=== PATIENT | male | born 1970 | race Caucasian/White ===

== ENCOUNTER 2020-03-11 10:39 | Outpatient (REF) | payer OTHER, SELFPAY ==
[2020-03-11 13:37] LABS: Alanine Aminotransferase 31 U/L (0-40); Albumin Level 4.5 g/dL (3.5-5.0); Alkaline Phosphatase 84 U/L (39-117); Anion Gap 15 (12-20); Aspartate Amino Transferase 37 U/L (5-37); Bilirubin Total 0.7 mg/dL (0.0-1.0); Blood Urea Nitrogen 15 mg/dL (9-16); Calcium 9.7 mg/dL (8.4-10.2); Carbon Dioxide 25 mmol/L (22-29); Chloride 102 mmol/L (96-108); Cholesterol 206 mg/dL; Estimated Glomerular Filt Rate > 60; Glucose Fasting 89 mg/dL (60-99); HDL Cholesterol 92 mg/dL; LDL Cholesterol Calculated 90 mg/dl; Potassium 4.2 mmol/l (3.3-5.1); Sodium 138 mmol/L (135-145); Total Protein 7.8 g/dL (6.5-8.0); Triglycerides 121 mg/dL
== END 2020-03-11 10:40 | disposition home or self-care (01) ==
LOC: HO.LAB 10:39
PROVIDERS: PCP Internal Medicine; Visit Provider Internal Medicine
DX: R05 Cough (principal); I10 Essential (primary) hypertension; F17.210 Nicotine dependence, cigarettes, uncomplicated; E78.00 Pure hypercholesterolemia, unspecified; Z79.899 Other long term (current) drug therapy
CPT/HCPCS: 80053; 80061; 99202; 99204; 99212

== ENCOUNTER 2020-03-19 10:41 | Outpatient (REF) | payer OTHER, SELFPAY ==
--- NOTE | 2020-03-19 10:45 | XR_ITS ---
EXAMINATION: XR CHEST CLINICAL INFORMATION: Cough COMPARISON: Previous chest x-rays most recent May 2012 TECHNIQUE: 2 views of the chest were obtained. FINDINGS: The cardiac and mediastinal contours are stable. The lungs are clear there is no pleural effusion or pneumothorax. There are degenerative changes of the spine. There is a surgical tack or anchor that projects over the right humeral head. XR/XR chest 2V IMPRESSION: No evidence for acute disease in the chest.
== END 2020-03-19 10:42 | disposition home or self-care (01) ==
LOC: HO.XRAY 10:41
PROVIDERS: PCP Internal Medicine; Visit Provider Internal Medicine
DX: R05 Cough (principal)
CPT/HCPCS: 71046

== ENCOUNTER 2020-03-26 07:10 | Emergency (ER) | payer OTHER, SELFPAY ==
[2020-03-26 07:36] VITALS: BP 141/95; PULSE 76; RESP 16; TEMP 36.7; O2SAT 98; BMI 25.7
--- NOTE | 2020-03-26 07:54 | XR_ITS ---
EXAMINATION: XR RIBS, LEFT CLINICAL INFORMATION: Left-sided pain COMPARISON: Previous chest x-ray most recent 03/19/2020 TECHNIQUE: 3 views of the left ribs and one view of the chest were obtained. FINDINGS: The cardiac and mediastinal contours are stable. There is subsegmental atelectasis at the lung bases. The lungs are otherwise clear. There is no pleural effusion or pneumothorax. There is a surgical anchor over the right humeral head. There are degenerative changes of the spine. Left RIBS: No rib fracture is seen. XR/XR ribs LT min 3V w CXR1V IMPRESSION: Bibasilar subsegmental atelectasis. No rib fracture seen.
--- NOTE | 2020-03-26 07:54 | ED.EXTPRO ---
HPI - Extremity Problem General Chief complaint: Extremity Injury, Upper Stated complaint: shoulder pain Time Seen by Provider: 03/26/20 07:54 Source: patient Mode of arrival: ambulatory Limitations: no limitations History of Present Illness HPI Narrative: L upper back/scapula pain MD Complaint: extremity pain Onset (ago): day(s) (3) Pain Consistency: constant Location: left Quality: aching Radiation: proximal Relieving factors: nothing Exacerbating factors: range of motion Associated symptoms: denies other symptoms Related Data Home Medications Medication Instructions Recorded Confirmed amlodipine 10 mg tablet 10 mg PO DAILY 02/16/20 02/16/20 atorvastatin 20 mg tablet 20 mg PO DAILY 02/16/20 02/16/20 metoprolol succinate 25 mg 25 mg PO DAILY 02/16/20 02/16/20 tablet,extended release 24 hr Previous Rx's Medication Instructions Recorded albuterol sulfate 90 mcg/actuation 2 puff INHALATION Q4-6H PRN 30 03/12/20 aerosol inhaler Days #8.5 g nicotine 14 mg/24 hr daily 1 patch TRANSDERMAL Q24H 28 Days 03/12/20 transdermal patch #28 ea cyclobenzaprine 10 mg PO TID PRN #14 tab 03/26/20 ibuprofen 600 mg PO Q6H PRN #30 tab 03/26/20 lidocaine 1 patch TOPICAL DAILY PRN #10 ea 03/26/20 Allergies Allergy/AdvReac Type Severity Reaction Status Date / Time lisinopril [LISINOPRIL] Allergy Unknown COUGH Verified 03/11/20 11:16 Review of Systems Review of Systems: Constitutional : No Fever, No Chills ENT/Mouth : No Ear Pain, No Hoarseness, No sore throat Eyes: No Eye Pain, No Swelling, No Redness, No Foreign Body Cardiovascular : No Chest Pain, No SOB Respiratory : No Cough, No Dyspnea Gastrointestinal : No Nausea, No Vomiting, No Diarrhea, No abdominal Pain Genitourinary : No Dysuria, No Hematuria Musculoskeletal : positive joint pain, No Myalgias, No Joint Swelling Skin : No Skin lacerations, No rash Neuro : No Weakness, No Numbness, No Loss of Consciousness, No Dizziness, No Headache PMFSH Past Medical History Medical History Cough HTN (hypertension) Smoker Social History Social History Smoking Status: Current every day smoker Packs Per Day: 1 Cigarettes Per Day: 20.0 Years Smoked: 32 years Advance Directives: No Advance Directives Information Provided: Yes Physical Exam Vital Signs: Vital Signs: Last Vital Signs Temp 98.0 F 03/26/20 07:36 Pulse 76 03/26/20 07:36 Resp 16 03/26/20 07:36 BP 141/95 H 03/26/20 07:36 Pulse Ox 98 03/26/20 07:36 Body Mass Index 25.7 Appearance: Alert. Oriented X3. No acute distress. Eyes: Pupils equal, round and reactive to light. ENT: Pharynx normal. Neck: Normal inspection. Neck supple. CVS: Normal heart rate and rhythm. Pulses normal. Respiratory: No respiratory distress. Breath sounds normal. Abdomen: Soft and nontender. Skin: Skin warm and dry. Normal skin color. Normal skin turgor. Extremities: No lower extremity edema. L upper paraspinal pain along rhomboids as well as pain on left trapezius, no crepitus felt with ROM of shoulder, no midline vert ttp, distal NV intact Neuro: Oriented X 3. No motor deficit. No sensory deficit. Course Course Course Narrative: negative xray stable for DC MDM - Extremity (Nontraumatic) MDM Narrative Medical decision making narrative: 49 yo male with L scapula upper back pain - hx of smoking no red flags such as fevers, weight loss, pain is very much reproduceable, he does have some L sided neck pain as well with spurling maneuver at this time will obtain rib xray to obtain views of L chest seems MSK in nature, lidocaine patch, flexeril, follow up with PCP Discharge Plan Discharge Clinical Impression: Muscle strain Patient Disposition: Home, Self-Care Instructions: Muscle Strain (ED) Additional Instructions: return to ED for any worsening symptoms or concerns Prescriptions: New cyclobenzaprine 10 mg tablet 10 mg PO TID PRN (Reason: muscle spasm) Qty: 14 RF: 0 lidocaine 4 % adhesive patch,medicated 1 patch topical DAILY PRN (Reason: pain) Qty: 10 RF: 0 ibuprofen 600 mg tablet 600 mg PO Q6H PRN (Reason: pain) Qty: 30 RF: 0 No Action atorvastatin 20 mg tablet 20 mg PO DAILY RF: 0 metoprolol succinate 25 mg tablet extended release 24 hr 25 mg PO DAILY RF: 0 amlodipine 10 mg tablet 10 mg PO DAILY RF: 0 albuterol sulfate [ProAir HFA] 90 mcg/actuation HFA aerosol inhaler 2 puff inhalation Q4-6H PRN (Reason: shortness of breath or wheezing) 30 Days Qty: 8.5 RF: 1 nicotine 14 mg/24 hr patch 24 hour 1 patch transdermal Q24H 28 Days Qty: 28 RF: 2 Referrals: Izabela Ellis MD [Primary Care Provider] - 2 days (if not better) Stand Alone Forms: Work/School Release
[2020-03-26] MEDS: Lidocaine 4 % Patch ADH..PATCH 1 PATCH TRANSDERMA (08:13)
== END 2020-03-26 09:05 | disposition home or self-care (01) ==
PROVIDERS: Emergency Provider Emergency Medicine; PCP Internal Medicine
DX: S46.912A Strain of unspecified muscle, fascia and tendon at shoulder and upper arm level, left arm, initial encounter (principal); S29.012A Strain of muscle and tendon of back wall of thorax, initial encounter; M25.512 Pain in left shoulder; I10 Essential (primary) hypertension; X58.XXXA Exposure to other specified factors, initial encounter; Y93.9 Activity, unspecified; Y92.9 Unspecified place or not applicable; Y99.9 Unspecified external cause status; Z79.899 Other long term (current) drug therapy; F17.200 Nicotine dependence, unspecified, uncomplicated; Z71.6 Tobacco abuse counseling
CPT/HCPCS: 71101; 99283

== ENCOUNTER 2020-04-08 11:30 | Day surgery (SDC) | payer OTHER, SELFPAY ==
[2020-03-31 10:15] VITALS: BMI 26.8
--- NOTE | 2020-04-07 13:26 | HO.ANESPROP2 ---
Documented by User: Corinne Perez 04/07/20 13:30 HPI - Anesthesia Eval Consult details Narrative: 49yo M for Colonoscopy PMFSH Past Medical History Medical History Cough Cough Elevated cholesterol HTN (hypertension) Hx of gout Smoker Smoker Surgical History Surgical History Hx of carpal tunnel repair Hx of elbow surgery Hx of rotator cuff surgery Hx of tonsillectomy Hx of vasectomy Social History Social History Smoking Status: Current every day smoker Packs Per Day: 1 Cigarettes Per Day: 20.0 Years Smoked: 32 Advance Directives Information Provided: Yes Meds Allergies Allergy/AdvReac Type Severity Reaction Status Date / Time lisinopril [LISINOPRIL] Allergy Intermediate COUGH Verified 04/08/20 09:41 Home Medications Medication Instructions Recorded Confirmed Type atorvastatin 20 mg tablet 20 mg PO DAILY 02/16/20 03/31/20 History amlodipine 10 mg tablet 10 mg PO DAILY 04/02/20 History Exam Exam Date and Time: April 07, 2020 1326 Height,Weight and Vital Signs: Height 5 ft 10 in Weight 84.822 kg Pertinent Lab Results Pertinent Lab Results: Laboratory Tests 03/14/19 03/11/20 07:25 10:59 WBC 9.9 Hgb 16.1 Hct 48.6 Plt Count 344 D Sodium 138 Potassium 4.2 Chloride 102 Carbon Dioxide 25 BUN 15 Creatinine 0.83 Narrative Narrative: CXR 03/19/20: No evidence of acute disease Assessment and Plan Assessment Anesthesia Assessment: Chart Reviewed Documented by User: Hermelinda Sahni 04/08/20 12:37 [facility] Past Medical History Medical History Cough Cough Elevated cholesterol HTN (hypertension) Hx of gout Smoker Smoker Family History Family history of problems with anesthesia: No Surgical History Surgical History Hx of carpal tunnel repair Hx of elbow surgery Hx of rotator cuff surgery Hx of tonsillectomy Hx of vasectomy History of Problems with Anesthesia: No Social History Social History Smoking Status: Current every day smoker Packs Per Day: 1 Cigarettes Per Day: 20.0 Years Smoked: 32 Advance Directives Information Provided: Yes Meds Allergies Allergy/AdvReac Type Severity Reaction Status Date / Time lisinopril [LISINOPRIL] Allergy Intermediate COUGH Verified 04/08/20 09:41 Home Medications Medication Instructions Recorded Confirmed Type atorvastatin 20 mg tablet 20 mg PO DAILY 02/16/20 03/31/20 History amlodipine 10 mg tablet 10 mg PO DAILY 04/02/20 History Exam Height,Weight and Vital Signs: Vital Signs Temp Pulse Resp BP Pulse Ox 04/08/20 11:37 98.1 F 65 16 165/93 H 99 Airway Mallampati Class: III TM Dist: >3cm Neck ROM: Full Denture: Upper Partial: Lower Heart: RRR Lungs: CTAB Assessment and Plan Assessment Anesthesia Assessment: Anesthesia Plan Discussed and Chart Reviewed Final Anesthetic Review NPO: No (Coffee with cream about 6 hours ago) ASA Class: II Final Preanesthetic Review: No Changes in Pt Med Stat, Meds/Allgs Chart Reviewed, Consent Obtained/Reviewed and Anes Risks/Benef Reviewed Patient Risk: Low Procedure Risk: Low Anesthetic Plan Anesthetic Plan: MAC: Disposition: Standard PACU
[2020-04-08 11:37] VITALS: BP 165/93; PULSE 65; RESP 16; TEMP 36.7; O2SAT 99
[2020-04-08] MEDS: Lactated Ringers 1,000 ML 100 ML IVCONT (11:44)
--- NOTE | 2020-04-08 12:49 | MHC.SHP ---
Pre-Procedural Eval Section B Chief Complaint: SCREENING Details of Present Illness: Colon cancer screening Recent eval for chronic cough--Nikky--? asthma variant, cigarette smoker. Relevant Family History (Specify if Yes): No Relevant Social History: Tobacco Use (1ppd) Present Medications: see Short Stay Collaborative assessment Medical History: Significant History (Hypertension, Cigarette smoker) History of Previous Operations: No relevant previous surgery Allergies: Allergies Allergy/AdvReac Type Severity Reaction Status Date / Time lisinopril [LISINOPRIL] Allergy Intermediate COUGH Verified 04/08/20 09:41 Review of Systems Sugical H&P ROS: Negative: Constitution and Yes, Specify: Cardiovascular (Hypertension), Respiratory (Cough), Neurological and Gastrointestinal (denies gerd) Exam Surgical H&P Exam: Normal: HEENT, Normal: Heart, Normal: Lungs, Normal: Extremities and Normal: Abdomen Plan Diagnosis/Plan: Unchanged Patient has been examined and remains a candidate for the planned procedure--yes
[2020-04-08 13:37] VITALS: BP 106/71; PULSE 86; RESP 20; TEMP 36.3; O2SAT 94
--- NOTE | 2020-04-08 13:40 | PM.PROC ---
Brief Operative Note Date of procedure: 04/08/20 Pre-op diagnosis: Colon cancer screening--#1, NHR Post-op diagnosis: other (cecal polyps) Procedure: Colonoscopy with excisional polypectomy Anesthesia: MAC (Phong Roberts, ELA) Surgeon: Julienne Greenberg Estimated blood loss (mL): 5 Pathology: other (cecal polyp) Condition: stable Disposition: PACU
[2020-04-08 13:55] VITALS: BP 120/80; PULSE 81; RESP 16; TEMP 36.3; O2SAT 96
--- NOTE | 2020-04-10 09:26 | OP_ITS ---
SURGEON: Julienne Greenberg MD PREOPERATIVE DIAGNOSIS: Colon cancer screening. POSTOPERATIVE DIAGNOSIS: Cecal polyp. PROCEDURE PERFORMED: Colonoscopy with excisional polypectomy x1, cold biopsy forceps. ESTIMATED BLOOD LOSS: Minimal. COMPLICATIONS: No complications. ANESTHESIA: Monitored. ANESTHESIOLOGIST: Shruthi Roberts CRNA ASSISTANTS: No parking assistant. SPECIMENS: Removed: Cecal polyp. TIP SCOURER: Julienne Greenberg MD FINDINGS: Prostate was slightly enlarged, firm, nodular. Video colonoscope was introduced without difficulty. It was navigated into the rectosigmoid andsigmoid. Scope easily passed through descending, transverse colon from hepatic flexure on. The prep was only fair. There was moderate amount of flushing and suctioning to remove a mild coating of brown bilious material that had adhered to the mucosal surface. I was able to get into the cecum, see the appendiceal orifice, reviewed the ileocecal valve. In the cecum, a polyp was identified between 2 folds. This was removed excisionally. Slow exit from the cecum. Good rotational views. No additional mucosal lesions were seen. Again, once past the hepatic flexure, the view improved dramatically, and no additional lesions were appreciated on the left side. Anorectal verge was clear. PLAN AND RECOMMENDATIONS: In this patient will be repeat asymptomatic screening in 5 years. GRAFT OR IMPLANTS: No grafts or implants. CONDITION: Postprocedure, stable. Julienne Greenberg MD MEN/MODL / [id number] MTDD
== END 2020-04-08 14:26 | disposition home or self-care (01) ==
PROVIDERS: PCP Internal Medicine; Visit Provider Internal Medicine Gastroenterology
PROC: 0DJD8ZZ Inspection of Lower Intestinal Tract, Via Natural or Artificial Opening Endoscopic (ICD-10-PCS; CPT 45378; principal; 2020-04-08 12:50)
DX: Z12.11 Encounter for screening for malignant neoplasm of colon (principal); D12.0 Benign neoplasm of cecum; R05 Cough; I10 Essential (primary) hypertension; F17.210 Nicotine dependence, cigarettes, uncomplicated; Z79.899 Other long term (current) drug therapy; Z71.6 Tobacco abuse counseling
CPT/HCPCS: 45380; 88305; 99212; J2250

== ENCOUNTER → 2020-04-21 08:08 | Outpatient (BNVA) | payer OTHER, SELFPAY | PROVIDERS: PCP Internal Medicine; Referring Provider Internal Medicine; Visit Provider Physician Assistant | DX: Z76.89 Persons encountering health services in other specified circumstances (principal) ==

== ENCOUNTER 2020-05-30 09:19 | Outpatient (REF) | payer OTHER, SELFPAY | END 2020-05-30 09:20 | disposition home or self-care (01) | LOC: HO.LAB 09:19 | PROVIDERS: Visit Provider Internal Medicine | DX: Z20.822 Contact with and (suspected) exposure to COVID-19 (principal) | CPT/HCPCS: 36415; C9803; U0003 ==

== ENCOUNTER 2021-01-30 09:26 | Outpatient (REF) | payer OTHER, SELFPAY ==
[2021-01-30 11:11] LABS: Alanine Aminotransferase 28 U/L (0-40); Albumin Level 4.3 g/dL (3.5-5.0); Alkaline Phosphatase 102 U/L (39-117); Anion Gap 14 (12-20); Aspartate Amino Transferase 32 U/L (5-37); Bilirubin Total 0.8 mg/dL (0.0-1.0); Blood Urea Nitrogen 15 mg/dL (9-16); Calcium 10.1 mg/dL (8.4-10.2); Carbon Dioxide 26 mmol/L (22-29); Chloride 104 mmol/L (96-108); Cholesterol 193 mg/dL; Estimated Glomerular Filt Rate > 60; Glucose Fasting 98 mg/dL (60-99); HDL Cholesterol 79 mg/dL; LDL Cholesterol Calculated 97 mg/dl; Potassium 4.6 mmol/L (3.3-5.1); Sodium 139 mmol/L (135-145); Total Protein 7.3 g/dL (6.5-8.0); Triglycerides 86 mg/dL
[2021-01-30 11:35] LABS: Syphilis Screen Nonreactive (Nonreactive)
[2021-01-30 11:43] LABS: HIV AB/AG Nonreactive (Nonreactive); HIV Num 1 0.06 S/CO (0.00-0.99)
[2021-01-31 07:25] LABS: Estimated Average Glucose 105 mg/dL; Hemoglobin A1c % 5.3 %
[2021-01-31 08:27] LABS: Lyme Abs Screen <0.90 index
[2021-02-06 13:10] LABS: Vitamin D 25-OH, D2 <4 ng/mL; Vitamin D 25-OH, D3 18 ng/mL; Vitamin D 25-OH, Total 18 ng/mL (30-100)
== END 2021-01-30 09:27 | disposition home or self-care (01) ==
LOC: HO.LAB 09:26
PROVIDERS: PCP Internal Medicine; Visit Provider Physician Assistant
DX: Z11.4 Encounter for screening for human immunodeficiency virus [HIV] (principal); Z13.1 Encounter for screening for diabetes mellitus; I10 Essential (primary) hypertension; E55.9 Vitamin D deficiency, unspecified; T14.8XXA Other injury of unspecified body region, initial encounter; W57.XXXA Bitten or stung by nonvenomous insect and other nonvenomous arthropods, initial encounter
CPT/HCPCS: 36415; 80053; 80061; 82306; 83036; 86617; 86618; 86780; 87389

== ENCOUNTER 2021-04-28 16:26 | Emergency (ER) | payer OTHER, SELFPAY | END 2021-04-28 18:56 | disposition left against medical advice (07) | PROVIDERS: Emergency Provider Emergency Medicine; PCP Internal Medicine | DX: Z04.1 Encounter for examination and observation following transport accident (principal); R07.9 Chest pain, unspecified ==

== ENCOUNTER 2021-05-06 15:35 | Emergency (ER) | payer OTHER, SELFPAY ==
--- NOTE | ~2021-05-06 | XR_ITS ---
EXAMINATION: XR CHEST CLINICAL INFORMATION: Trauma COMPARISON: Chest radiographs 03/26/2020, 03/19/2020 TECHNIQUE: 2 views of the chest were obtained. FINDINGS: There is no pneumothorax or pneumomediastinum or effusion. No lobar or segmental airspace consolidation or groundglass opacity. There is linear scarring adjacent to lateral right minor fissure similar to prior exam. There is also subsegmental atelectasis left lower zone adjacent to old linear scarring. The heart is normal in size. The hilar and mediastinal contours are normal. No visible acute bony abnormality. XR/XR chest 2V IMPRESSION: 1. Bilateral lower zone subsegmental atelectasis adjacent to old scarring. 2. No pneumothorax, airspace consolidation, or effusion.
[2021-05-06 15:53] VITALS: BP 104/64; PULSE 74; RESP 20; TEMP 36.6; O2SAT 95; BMI 26.6
--- NOTE | 2021-05-06 18:52 | PC.NURSE ---
CALLED NOT IN M[facility]
--- NOTE | 2021-05-06 19:30 | PC.NURSE ---
CALLED NOT IN M[facility] LWT.
== END 2021-05-06 19:58 | disposition left against medical advice (07) ==
LOC: HO.ED 19:57
PROVIDERS: Emergency Provider Emergency Medicine; PCP Internal Medicine
DX: R06.02 Shortness of breath (principal); M79.602 Pain in left arm; M79.601 Pain in right arm
CPT/HCPCS: 71046; 99282; 99283

== ENCOUNTER 2022-04-21 17:17 | Emergency (ER) | payer OTHER, SELFPAY ==
[2022-04-21 17:58] VITALS: BP 109/65; PULSE 73; RESP 18; TEMP 36.6; O2SAT 95; BMI 26.5
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
[2022-04-21] MEDS: Diphth,Pertus(ACell),Tet Adult 0.5 ML SYRINGE IM (18:21)
[2022-04-21] MEDS: Bacitracin Oint 14 GM TUBE 4 APPL TOPICAL (19:06)
[2022-04-21] MEDS: oxyCODONE HCl Immed Release 5 MG TABLET PO (19:06)
--- NOTE | 2022-04-21 19:37 | PC.NURSE ---
bacitracin, non stick dressings, and cling applied to serrato on bilateral feet per order- patient tolerated well.
== END 2022-04-21 19:38 | disposition home or self-care (01) ==
PROVIDERS: Emergency Provider Internal Medicine; PCP Internal Medicine
DX: S90.812A Abrasion, left foot, initial encounter (principal); S90.811A Abrasion, right foot, initial encounter; M79.672 Pain in left foot; M79.671 Pain in right foot; T25.222A Burn of second degree of left foot, initial encounter; T31.0 Burns involving less than 10% of body surface; F17.210 Nicotine dependence, cigarettes, uncomplicated; X12.XXXA Contact with other hot fluids, initial encounter; Y93.9 Activity, unspecified; Y92.9 Unspecified place or not applicable; Y99.9 Unspecified external cause status; Z79.899 Other long term (current) drug therapy; Z71.6 Tobacco abuse counseling
CPT/HCPCS: 16025; 90471; 90715; 99283; 99284

== ENCOUNTER 2022-04-28 08:00 | Outpatient (RCR) | payer OTHER, SELFPAY | END 2022-05-13 14:17 | disposition home or self-care (01) | LOC: HO.WCC 08:00 | PROVIDERS: PCP Internal Medicine; Visit Provider Surgery | DX: T25.222A Burn of second degree of left foot, initial encounter (principal); T25.231A Burn of second degree of right toe(s) (nail), initial encounter; I10 Essential (primary) hypertension; T31.0 Burns involving less than 10% of body surface; X12.XXXA Contact with other hot fluids, initial encounter; Y93.G3 Activity, cooking and baking; Y92.9 Unspecified place or not applicable; Y99.9 Unspecified external cause status | CPT/HCPCS: 16020; 99212; 99214 ==

== ENCOUNTER 2022-05-22 08:20 | Outpatient (REF) | payer OTHER, SELFPAY ==
[2022-05-22 09:33] LABS: Hematocrit 46.1 % (42.0-52.0); Hemoglobin 15.1 g/dl (14.0-18.0); Mean Corpuscular HGB Conc 32.8 g/dl (31.0-36.0); Mean Corpuscular Volume 94.7 fL (80.0-98.0); Mean Platelet Volume 8.9 fL (9.4-12.4); Platelet Count 278 X10*3/uL (160-400); Red Blood Count 4.87 X10*6/uL (4.60-5.80); Red Cell Distribution Width 13.1 % (11.0-16.0); White Blood Count 8.7 X10*3/uL (4.8-10.8)
[2022-05-22 10:18] LABS: Estimated Average Glucose 103 mg/dL; Hemoglobin A1c % 5.2 %
[2022-05-22 10:21] LABS: Alanine Aminotransferase 23 U/L (0-40); Albumin Level 4.3 g/dL (3.5-5.0); Alkaline Phosphatase 83 U/L (39-117); Anion Gap 15 (12-20); Aspartate Amino Transferase 27 U/L (5-37); Bilirubin Total 0.7 mg/dL (0.0-1.0); Blood Urea Nitrogen 15 mg/dL (9-16); Calcium 9.9 mg/dL (8.4-10.2); Carbon Dioxide 26 mmol/L (22-29); Chloride 106 mmol/L (96-108); Cholesterol 206 mg/dL; Estimated Glomerular Filt Rate > 60; Glucose Fasting 95 mg/dL (60-99); HDL Cholesterol 74 mg/dL; LDL Cholesterol Calculated 109 mg/dl; Potassium 4.6 mmol/L (3.3-5.1); Sodium 142 mmol/L (135-145); Total Protein 7.3 g/dL (6.5-8.0); Triglycerides 115 mg/dL
[2022-05-22 10:42] LABS: Prostate Specific Antigen Scr 3.52 ng/mL (<0.05-4.0)
== END 2022-05-22 08:21 | disposition home or self-care (01) ==
LOC: HO.LAB 08:20
PROVIDERS: Visit Provider Physician Assistant
DX: Z12.5 Encounter for screening for malignant neoplasm of prostate (principal); I10 Essential (primary) hypertension
CPT/HCPCS: 36415; 80053; 80061; 83036; 84153; 84443; 85027

== ENCOUNTER 2022-06-30 11:12 | Emergency (ER) | payer OTHER, SELFPAY | END 2022-06-30 11:35 | disposition left against medical advice (07) | PROVIDERS: Emergency Provider Emergency Medicine; PCP Internal Medicine | DX: T15.92XA Foreign body on external eye, part unspecified, left eye, initial encounter (principal); X58.XXXA Exposure to other specified factors, initial encounter ==

== ENCOUNTER 2022-06-30 15:48 | Emergency (ER) | payer OTHER, SELFPAY ==
[2022-06-30 16:22] VITALS: BP 99/54; PULSE 60; RESP 17; TEMP 36.6; O2SAT 98; BMI 26.6
--- NOTE | 2022-06-30 16:22 | ED.EYEPROB ---
HPI - Eye Problem General Chief complaint: Eye Problems Stated complaint: fb l eye paint chip Related Data Previous Rx's Medication Instructions Recorded albuterol sulfate 90 mcg/actuation 2 puff PO Q4-6H PRN for wheezing 08/04/20 aerosol inhaler (ProAir HFA) #8.5 grams baclofen 10 mg tablet 10 mg PO BID 7 days #14 tabs 02/05/21 bupropion HCl 150 mg tablet,12 hr 150 mg PO BID 90 days #180 caps 04/23/21 sustained-release bacitracin 500 unit/gram topical 1 appl topical BID #30 grams 04/21/22 ointment hydrocodone 5 mg-acetaminophen 325 1 tab PO Q8H PRN pain, severe 3 04/21/22 mg tablet days #9 tabs atorvastatin 20 mg tablet 20 mg PO DAILY #90 tabs 05/12/22 amlodipine 10 mg tablet 10 mg PO DAILY #30 tabs 05/17/22 metoprolol succinate 25 mg 25 mg PO DAILY 90 days #90 tabs 06/10/22 tablet,extended release 24 hr Allergies Allergy/AdvReac Type Severity Reaction Status Date / Time lisinopril [LISINOPRIL] Allergy Intermediate COUGH Verified 04/21/22 17:56 PMFSH Past Medical History Medical History Cough Cough Elevated cholesterol Essential hypertension HTN (hypertension) Hx of gout Smoker Smoker Surgical History Hx of carpal tunnel repair Hx of elbow surgery Hx of rotator cuff surgery Hx of tonsillectomy Hx of vasectomy Family History Family History Unknown No family history of colorectal cancer Brother Brain tumor Mother Diabetes Social History Social History Household Members: Spouse and Children Housing: House Patient Tobacco Use Status: Current everyday Tobacco user Cigarette Packs Per Day: 1 Cigarettes Per Day: 20.0 Years Smoked: 32 Advance Directives: No Advance Directives Information Provided: No service: No Current occupational status: unemployed Physical Exam Vital Signs: Vital Signs: Last Vital Signs Temp 98 F 06/30/22 16: Pulse 60 06/30/22 16:22 Resp 17 06/30/22 16:22 BP 99/54 L 06/30/22 16:22 Pulse Ox 98 06/30/22 16:22 BMI result Body Mass Index 26.6 Course Course Course Narrative: This is an RME: Additional HPI, ROS, PE not included below will be deferred to primary provider. Patient is a 51-year-old male presents emergency department for evaluation of Foreign body sensation to left eye, suspect this may be a paint chip? was working in basement doing metal framing, was wearing safety glasses. Irrigated with normal saline. Occurred at 11:00. States unable to open the eye due to pain, uncertain about vision changes. Denies wearing contact lenses. Denies discharge from eye/ excessive tearing. Plan: Visual acuity, will require fluorescein staining, and further examination. placed back in waiting room pending bed availability Discharge Plan Discharge Clinical Impression: Eye abnormality Patient Disposition: Elopement Prescriptions: No Action albuterol sulfate [ProAir HFA] 90 mcg/actuation HFA aerosol inhaler 2 puff PO Q4-6H PRN (Reason: for wheezing) Qty: 8.5 0RF baclofen 10 mg tablet 10 mg PO BID 7 Days Qty: 14 0RF bupropion HCl 150 mg tablet sustained-release 12 hr 150 mg PO BID 90 Days Qty: 180 1RF atorvastatin 20 mg tablet 20 mg PO DAILY Qty: 90 1RF amlodipine 10 mg tablet 10 mg PO DAILY Qty: 30 6RF metoprolol succinate 25 mg tablet extended release 24 hr 25 mg PO DAILY 90 Days Qty: 90 3RF hydrocodone-acetaminophen 5-325 mg tablet 1 tab PO Q8H PRN (Reason: pain, severe) 3 Days Qty: 9 0RF Rx Instructions: Partial Fill upon patient request. bacitracin 500 unit/gram ointment 1 appl topical BID Qty: 30 1RF Interventions: LWBS Worksheet Last Done: 06/30/22 19:36 Discharge Date/Time: 06/30/22 19:37
== END 2022-06-30 19:37 | disposition left against medical advice (07) ==
PROVIDERS: Emergency Provider Emergency Medicine; PCP Internal Medicine
DX: T15.92XA Foreign body on external eye, part unspecified, left eye, initial encounter (principal); X58.XXXA Exposure to other specified factors, initial encounter
CPT/HCPCS: 99281

== ENCOUNTER 2023-01-07 12:35 | Outpatient (AMB) | payer OTHER, SELFPAY ==
--- NOTE | 2023-01-07 09:23 | MHC.OFFVIS ---
Intake Intake Visit Reasons: LDCT SD Allergies lisinopril [LISINOPRIL] Allergy (Intermediate, Verified 11/10/22 08:40) COUGH HPI LDCT SD HPI Details Initial visit for this 52yo smoker with a 30PYH. Patient has been smoking since age 17 for 35 years at 1ppd. . Denies marijuana use. Denies second hand smoke exposure. Denies exposure to chemicals or substances like asbestos. . Denies known family history of lung cancer. Denies personal history of cancers. Denies chest CT in last year. . Denies recent travel outside the [place]. Denies recent respiratory illness or recent hospitalization for respiratory issues. Denies testing positive for COVID. Admits receiving COVID Vaccine. x 2. . Denies fever, chills, new/worsening cough, hemoptysis, hoarseness or dysphagia. Denies significant chest pain, significant dyspnea or unintentional weight loss. Patient Lung Cancer Screening Questionnaire reviewed with patient by provider. . Shared Decision Making Completed. Patient meets criteria. Discussed in detail with patient, the risk vs benefit of LDCT screening. Patient consents to proceed with scan. Discussed smoking cessation. [facility] Medical History (Updated 01/07/23 @ 13:08 by Ana Lilia Levin PA-C) Elevated cholesterol Essential hypertension Hx of gout Nicotine dependence, cigarettes, uncomplicated Sessile colonic polyp (~2019) Tick bite Surgical History (Updated 12/14/22 @ 10:52 by Ana Lilia Levin PA-C) History of carpal tunnel surgery History of colonoscopy History of elbow surgery History of repair of right rotator cuff History of tonsillectomy History of vasectomy Family History (Updated 11/10/22 @ 09:01 by Vik Scruggs MD) Unknown No family history of colorectal cancer Brother Brain tumor Mother Diabetes Maternal Grandfather CVA (cerebral vascular accident) Maternal Aunt Cervical cancer Social History (Updated 01/07/23 @ 13:09 by Ana Lilia Levin PA-C) Household Members: Spouse and Children Housing: House Alcohol intake: current Patient Tobacco Use Status: Current everyday Tobacco user Tobacco use type: Cigarette Years Smoked: (onset 17yo, 1ppd x 35yrs - 30+pyh) e-Cigarette/Vaping Use: Never Used Second Hand Smoke Exposure: No service: No Current occupational status: unemployed Cognitive needs: No Hearing needs: No Vision needs: No Assessment & Plan Assessment & Plan (1) Nicotine dependence, cigarettes, uncomplicated: Comment: (current smoker - onset 17yo, 1ppd x 35yrs - 30pyh) Code(s): F17.210 - Nicotine dependence, cigarettes, uncomplicated Plan: - SDM visit completed today in office. - Patient meets criteria for LDCT for lung cancer screening purposes and is asymptomatic. - Smoking cessation counseling offered. Patients can always call [phone]. - Will arrange for a LDCT scan of the chest for screening purposes at [facility]. - Risks, benefits, and alternatives were discussed in detail and the patient agrees to proceed. - Risks discussed include but are not limited to: radiation exposure, anxiety during testing and while awaiting results, false negatives, false positives and possibility of additional intervention such as further imaging or surgical procedures for benign disease. - Benefits are obviously detection of lung cancer at an early stage which can lead to improved outcomes. - Discussed the importance of screening program compliance with adherence to yearly LDCT scan as scheduled - or sooner interval scans for personalized screening regimen. - Discussed follow up plan. Our office will send a letter discussing results and if needed set up phone call and office visit based on CT findings. - Patient educated on results categorization and the management decisions for suspicious findings potentially found on the screening LDCT scan. Any patient with a Lung RADS score of 3 or 4 will be reviewed by a multidisciplinary team at [facility] to form a plan of action in regards to scan findings. - If further work up is warranted for a suspicious lung finding this will be followed by the Lung Cancer Screening program in conjunction with the Thoracic Surgery Department at [facility]. - A copy of the office note and LDCT will be sent to the patient's PCP - as well as documentation on any associated further plans of care. - Incidental findings on LDCT are the PCP's responsibility. These findings are indicated with an S finding on the LDCT Assessment. A note discussing the findings will be sent to the PCP who is then responsible for further management. - All questions answered.? Coding Level of Care Code Lung Cancer Screening G0296 Diagnoses Nicotine dependence, cigarettes, uncomplicated F17.210
== END 2023-01-07 13:20 | disposition home or self-care (01) ==
PROVIDERS: PCP Internal Medicine; Visit Provider Physician Assistant Medical
DX: F17.210 Nicotine dependence, cigarettes, uncomplicated (principal)
CPT/HCPCS: G0296

== ENCOUNTER 2023-01-07 13:09 | Outpatient (REF) | payer OTHER, SELFPAY ==
--- NOTE | ~2023-01-07 | CT_ITS ---
EXAMINATION: CT CHEST SCREENING CLINICAL INFORMATION: 35 pack year smoking history; current smoker. COMPARISON: Chest radiographs dated 05/06/2021. TECHNIQUE: Multidetector volumetric CT imaging of the chest is performed without contrast using low dose technique. Additional 2D coronal and sagittal reformatted images and axial 3D maximum intensity projection (MIP) images are generated on the CT workstation. This CT examination was performed using dose optimization techniques as appropriate, variously including the following: *Automated exposure control *Adjustment of mA and/or kV according to patient size (this includes techniques or standardized protocols for targeted exams where dose is matched to indication/reason for exam; i.e. extremities or head) *Use of iterative reconstruction technique DLP: 66 mGy-cm FINDINGS: LUNGS: The lungs are clear with no evidence of inflammation or nodules. MEDIASTINUM: There is moderate paraseptal emphysematous change, most pronounced at the right apex. A tiny benign, calcified granuloma seen at the medial right apex (8:27 and 4:93). No noncalcified nodule is seen. There is no mass, infiltrate or groundglass opacity. There is mild bibasilar dependent linear scar/subsegmental atelectasis. No small airway thickening is seen. The central airways appear patent. CORONARY ARTERY CALCIFICATION: Moderate. PLEURA: There is no pleural effusion. No pleural mass or thickening. AXILLA: No lymphadenopathy. UPPER ABDOMEN: Unremarkable OSSEOUS STRUCTURES: There is multi-level thoracic degenerative disc disease and spondylosis. Within the T9 vertebral body, a 9 mm indeterminate lytic focus is seen. CT/CT lung screening IMPRESSION: 1. No noncalcified nodule, mass, infiltrate or groundglass opacity is seen. 2. There is mild bibasilar dependent linear scar/subsegmental atelectasis. 3. There is no thoracic lymphadenopathy or pleural effusion. 4. A 9 mm indeterminate lytic focus is seen within the T9 vertebral body. If there is pain referable to this location or a history of known malignancy, consider further evaluation with MRI or a nuclear bone scan. ASSESSMENT: Lung-RADS category 1: Negative RECOMMENDATION: Routine annual low-dose CT screening in 12 months.
== END 2023-01-07 13:10 | disposition home or self-care (01) ==
LOC: HO.CT 13:09
PROVIDERS: PCP Internal Medicine; Visit Provider Physician Assistant Medical
DX: Z12.2 Encounter for screening for malignant neoplasm of respiratory organs (principal); F17.210 Nicotine dependence, cigarettes, uncomplicated
CPT/HCPCS: 71271; G0296

== ENCOUNTER 2023-01-11 13:52 | Outpatient (AMB) | payer OTHER, SELFPAY ==
--- NOTE | 2023-01-11 14:03 | A.OFFVIS_ITS ---
Intake Intake Visit Reasons: New Pt - B/L elbow pain Intake Note: Renny is a 52 year old right hand dominant male who presents today as a new patient for a evaluation for his bilateral elbow pain. Patient reports ongoing pain for a couple months. He states that his pain starts from his elbow and radiates down to his hand. Patient reports both elbows are equal to pain. He states that his hands get numb at night and his pain is worse. . Allergies lisinopril [LISINOPRIL] Allergy (Intermediate, Verified 01/11/23 14:08) COUGH HPI New Pt - B/L elbow pain HPI Details 52-year-old right hand dominant male who presents in the office today, as a new patient, for an evaluation of bilateral elbow pain. The patient reports chronic pain for a couple of months. He claims his pain radiates from the elbows down to his hands. He states the pain in equal in his elbows. He confirms numbness in his bilateral elbows distally at night with an increase in pain. 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 The patient has a history of carpal tunnel release. He also has a history of a right distal radius fracture. [facility] Medical History (Updated 01/11/23 @ 14:33 by Lesli Britton) Elevated cholesterol Essential hypertension Hx of gout Nicotine dependence, cigarettes, uncomplicated Sessile colonic polyp (~2020) Tick bite Surgical History (Updated 12/14/22 @ 10:52 by Ana Lilia Levin PA-C) History of carpal tunnel surgery History of colonoscopy History of elbow surgery History of repair of right rotator cuff History of tonsillectomy History of vasectomy Family History (Updated 11/10/22 @ 09:01 by Vik Scruggs MD) Unknown No family history of colorectal cancer Brother Brain tumor Mother Diabetes Maternal Grandfather CVA (cerebral vascular accident) Maternal Aunt Cervical cancer Social History (Updated 01/07/23 @ 13:09 by Ana Lilia Levin PA-C) Household Members: Spouse and Children Housing: House Alcohol intake: current Patient Tobacco Use Status: Current everyday Tobacco user Tobacco use type: Cigarette Years Smoked: (onset 17yo, 1ppd x 35yrs - 30+pyh) e-Cigarette/Vaping Use: Never Used Second Hand Smoke Exposure: No service: No Current occupational status: unemployed Cognitive needs: No Hearing needs: No Vision needs: No Review of Systems Const All systems reviewed & are unremarkable except as noted in HPI and below Physical Exam Const General: cooperative and no acute distress Orientation/consciousness: patient oriented x3 Resp Effort & Inspection: normal respiratory effort and able to speak in complete sentences Cardio Peripheral pulses: Peripheral pulses 2+ throughout Skin General skin exam: no rashes or lesions noted Neuro General: patient oriented x3 Extrem Other: Bilateral elbows: Normal to inspection. No ecchymosis, erythema, or edema. No tenderness to palpation over the olecranon. No tenderness to the medial or lateral epicondyle. Positive Tinel?s. Reports numbness and tingling distally. Assessment & Plan Assessment & Plan (1) Cubital tunnel syndrome on right: Code(s): G56.21 - Lesion of ulnar nerve, right upper limb (2) Cubital tunnel syndrome on left: Code(s): G56.22 - Lesion of ulnar nerve, left upper limb Plan Mr. Kline is a 52-year-old right hand dominant male who presents in the office today, as a new patient, for an evaluation of bilateral elbow pain. The patient reports chronic pain for a couple of months. He claims his pain radiates from the elbows down to his hands. He states the pain in equal in his elbows. He confirms numbness in his bilateral elbows distally at night with an increase in pain. 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 The patient has a history of carpal tunnel release. He also has a history of a right distal radius fracture. The patient will be referred for an EMG study to further evaluate the bilateral upper extremities. Follow up will be after the EMG is obtained, or sooner if needed. Orders: Orders NE electromyogram (EMG) Today G56.23 - Lesion of ulnar nerve, bilateral upper limbs Patient Instructions: Scribed for Tracy Mcclelland PA-C by Lesli Britton emergency medical technician/driver, on 01/11/2023 at 2:01 pm, EST. Coding Level of Care Code New Pt Level 4 (70304) Diagnoses Cubital tunnel syndrome on right G56.21 Cubital tunnel syndrome on left G56.22
== END 2023-01-11 14:30 | disposition home or self-care (01) ==
PROVIDERS: PCP Internal Medicine; Visit Provider Physician Assistant
DX: G56.21 Lesion of ulnar nerve, right upper limb (principal); G56.22 Lesion of ulnar nerve, left upper limb
CPT/HCPCS: 99204

== ENCOUNTER → 2023-01-11 13:52 | Outpatient (BNVA) | payer OTHER, SELFPAY | PROVIDERS: PCP Internal Medicine; Visit Provider Physician Assistant | DX: G56.21 Lesion of ulnar nerve, right upper limb (principal); G56.22 Lesion of ulnar nerve, left upper limb | CPT/HCPCS: 99202 ==

== ENCOUNTER 2023-05-10 08:15 | Outpatient (AMB) | payer OTHER, SELFPAY ==
[2023-05-10 08:29] VITALS: BP 142/80; PULSE 65; O2SAT 96; BMI 27.2
--- NOTE | 2023-05-10 08:29 | MHC.PC.OV ---
Vital Signs 05/10/23 08:29 05/10/23 08:47 Height 5 ft 8 in Weight 179 lb BMI 27.2 BP 142/80 H 134/80 Blood Pressure Location Lt brachial Lt brachial Position Sitting Sitting Pulse 65 Pulse Source Pulse Oximeter Pulse Oximetry (%) 96 Oxygen Delivery Method Room Air Intake Visit Reasons: pe Allergies lisinopril [LISINOPRIL] Allergy (Intermediate, Verified 05/10/23 08:29) COUGH Medication List - Last Reconciled 05/10/23 by Vik Scruggs MD amlodipine 10 mg PO DAILY atorvastatin 20 mg PO DAILY blood pressure monitor (Blood Pressure Kit) As directed metoprolol succinate ER 25 mg PO DAILY 90 days Tobacco use date assessed: 11/10/22 Dental Screening Dental Screen Date: 05/10/23 Did you have a dental visit in the last 12 months?: Yes Did you have a dental problem in the last 6 months where you did not have access to dental care?: No Was dental information given to patient?: Patient has dentist HPI pe HPI Details 52-year-old overweight male smoker with hypertension hypercholesterolemia last seen in October 2022. Patient is here for physical exam. Review of the notes seen by orthopedics and December 2022 due to bilateral elbow pain radiating to the hands causing numbness patient has history of carpal tunnel send with a history of right distal radial fracture patient was advised to get nerve conduction test. With a history of smoking patient had a CT scan of chest done December 2022 showing a 9 mm indeterminate lytic focus within the T9 vertebral body otherwise to continue with yearly CT [facility] Medical History (Updated 05/10/23 @ 08:43 by Vki Scruggs MD) Nicotine dependence, cigarettes, uncomplicated Tick bite Essential hypertension Sessile colonic polyp (~2019) Hx of gout Elevated cholesterol Surgical History (Updated 12/14/22 @ 10:52 by Ana Lilia Levin PA-C) History of colonoscopy History of repair of right rotator cuff History of vasectomy History of tonsillectomy History of elbow surgery History of carpal tunnel surgery Family History (Updated 05/10/23 @ 08:51 by Vik Scruggs MD) Unknown No family history of colorectal cancer Brother Brain tumor Mother Diabetes Maternal Grandfather CVA (cerebral vascular accident) Heart attack Maternal Aunt Cervical cancer Social History (Updated 05/10/23 @ 08:54 by Vki Scruggs MD) Household Members: Spouse and Children Housing: House Alcohol intake: current Comment: QD 1 beer 4-5 shots Patient Tobacco Use Status: Current everyday Tobacco user Tobacco use type: Cigarette Cigarette Packs Per Day: 1 Years Smoked: (onset 17yo, 1ppd x 35yrs - 30+pyh) e-Cigarette/Vaping Use: Never Used Second Hand Smoke Exposure: No service: No Current occupational status: unemployed Cognitive needs: No Hearing needs: No Vision needs: No Questionnaire PHQ-9 Over the last 2 weeks, how often have you been bothered by any of the following problems? 1. Little interest or pleasure in doing things: not at all 2. Feeling down, depressed, or hopeless: not at all 3. Trouble falling or staying asleep, or sleeping too much: not at all 4. Feeling tired or having little energy: not at all 5. Poor appetite or overeating: not at all 6. Feeling bad about yourself - or that you are a failure or have let yourself or your family down: not at all 7. Trouble concentrating on things, such as reading the newspaper or watching television: not at all 8. Moving or speaking so slowly that other people could have noticed. Or the opposite - being so fidgety or restless that you have been moving around a lot more than usual: not at all 9. Thoughts that you would be better off or of hurting yourself in some way: not at all Total score: 0 Depression Screening Interpretation: Negative Depression Screening Done: Yes Source: Developed by Drs. Gilberto Zeng, Braxton Banks and colleagues, with an educational raleigh from [employer]. Thrive Questionnaire Date Thrive assessed: 11/10/22 AUDIT C Alcohol Use Questionnaire (AUDIT-C) 1. How often do you have a drink containing alcohol?: 4 or more times a week 2. How many drinks containing alcohol do you have on a typical day when you are drinking?: 1 or 2 3. How often do you have six or more drinks on one occasion?: Never Total Score: 4 LISSA-7 AMB Questionnaire LISSA-7 Date LISSA - 7 assessed: 11/10/22 Source: Developed by Drs. Gilberto Zeng, Braxton Banks and colleagues, with an educational raleigh from [employer]. Review of Systems Const Denies poor appetite and Denies weakness Eyes Denies no additional complaints ENT Reports Normal hearing present, Denies dizziness, Denies nasal congestion, Denies tinnitus and Denies sore throat Card Denies chest pain, Denies syncope, Denies rapid heart rate and Denies dyspnea Resp Denies cough and Denies dyspnea GI Denies change in stool character, Reports constipation, Denies diarrhea, Denies nausea and Denies vomiting Denies dysuria and Denies urinary frequency Neuro Reports Normal hearing present, Denies confusion, Denies dizziness, Denies syncope and Denies weakness Psych Denies confusion Physical exam (Primary Care) Vital Signs: Last Vital Signs Pulse 65 05/10/23 08:29 BP 142/80 H 05/10/23 08:29 Pulse Ox 96 05/10/23 08:29 Oxygen Delivery Method Room Air 05/10/23 08:29 BMI result Body Mass Index 27.2 Tobacco/Smoking Status: Tobacco use Status Tobacco use date assessed 11/10/22 05/10/23 08:34 Patient Tobacco Use Status Current everyday Tobacco 05/10/23 08:34 Tobacco use type Cigarette 05/10/23 08:34 e-Cigarette/Vaping Use Never Used 05/10/23 08:34 PHQ-9: PHQ-9 Score PHQ-9: Total score 0 05/10/23 08:34 Depression Screening Interpretation: Negative Thrive Assessment: Date of Thrive Assessment Date Thrive assessed 11/10/22 05/10/23 08:34 Const General: alert and awake; No confusion Orientation/consciousness: No confusion HENMT Head: Yes normocephalic Ears: external ears normal and TM's normal bilaterally Face and sinus: Yes normal facial exam Mouth: moist mucous membranes Throat: Yes tonsils normal Eyes Conjunctivae: conjunctivae normal Pupils: Equal, round and reactive pupils present and Pupil accommodation reflex normal Direct Ophthalmoscopy: normal light reflex Neck Neck: No lymphadenopathy Thyroid: Thyroid normal Chest Chest palpation & inspection: normal inspection of the chest Resp Effort & Inspection: normal respiratory effort and no audible wheezes Auscultation: clear to auscultation bilaterally, no crackles, no wheezes and lung sounds not diminished Cardio Rate: regular rate Rhythm: regular rhythm Peripheral pulses: radial pulses present and dorsalis pedis present GI Palpation (GI): no masses Auscultation: normal bowel sounds and normoactive bowel sounds Rectal Exam - Male: Yes deferred Skin General skin exam: no rashes or lesions noted Rashes: no rashes Neuro General: deep tendon reflexes 2+ bilaterally and No confusion Cranial nerves: Yes Equal, round and reactive pupils present, Yes Midline tongue present, Yes Normal hearing present and Yes Ability to bilaterally elevate shoulders present Cognition (Neuro): normal cognition Gait exam (Neuro): Normal gait present Motor exam (neuro): 5/5 motor strength present throughout Deep tendon reflexes (DTR's): Right brachioradialis reflex intensity grade: 2+, Left brachioradialis reflex intensity grade: 2+, Right patellar reflex intensity grade: 2+ and Left patellar reflex intensity grade: 2+ Extrem General: No edema Assessment and Plan Assessment & Plan (1) Annual physical exam: Code(s): Z00.00 - Encounter for general adult medical examination without abnormal findings (2) Cubital tunnel syndrome of both upper extremities: Code(s): G56.23 - Lesion of ulnar nerve, bilateral upper limbs Plan: Patient has been seen by orthopedics and advised nerve conduction test (3) Essential hypertension: Code(s): I10 - Essential (primary) hypertension Plan: Continue with blood pressure medication. Decrease salt intake and exercise presently on amlodipine 10 mg once a day and metoprolol 25 mg once a day (4) Elevated cholesterol: Comment: May 2022 Code(s): E78.00 - Pure hypercholesterolemia, unspecified Plan: Avoid fried foods, chicken skin, eggs, butter margarine, pastries and meat. Be it pork or beef they have a lot of cholesterol patient takes atorvastatin 20 mg once a day blood work done May 2022 (5) Nicotine dependence, cigarettes, uncomplicated: Comment: (current smoker - onset 17yo, 1ppd x 35yrs - 30pyh) CT chest December 2022 Code(s): F17.210 - Nicotine dependence, cigarettes, uncomplicated Plan: S patient is strongly advised to stop smoking! CT scan done lungs are clear there is a T9 9 mm lesion focus that will be monitored. Orders: Orders Comprehensive Met. Panel 1 Month I10 - Essential (primary) hypertension Free T4 (Free Thyroxine) 1 Month I10 - Essential (primary) hypertension Thyroid Stimulating Hormone 1 Month I10 - Essential (primary) hypertension Lipid Panel 1 Month E78.00 - Pure hypercholesterolemia, unspecified, I10 - Essential (primary) hypertension Prostate Specific Antigen Scr 1 Month I10 - Essential (primary) hypertension Complete Blood Count Auto Diff 1 Month I10 - Essential (primary) hypertension Vitamin B12 and Folate 1 Month I10 - Essential (primary) hypertension Magnesium 1 Month G56.21 - Lesion of ulnar nerve, right upper limb Coding Level of Care Code Est Pt Prev Care 40-64y(21922) Diagnoses Annual physical exam Z00.00 Cubital tunnel syndrome of both upper extremities G56.23 Essential hypertension I10 Elevated cholesterol E78.00 Nicotine dependence, cigarettes, uncomplicated F17.210
[2023-05-10 08:47] VITALS: BP 134/80
== END 2023-05-10 09:08 | disposition home or self-care (01) ==
PROVIDERS: PCP Internal Medicine; Visit Provider Internal Medicine
DX: Z00.00 Encounter for general adult medical examination without abnormal findings (principal); G56.23 Lesion of ulnar nerve, bilateral upper limbs; I10 Essential (primary) hypertension; E78.00 Pure hypercholesterolemia, unspecified; F17.210 Nicotine dependence, cigarettes, uncomplicated
CPT/HCPCS: 99396

== ENCOUNTER 2023-06-22 15:14 | Outpatient (REF) | payer OTHER, SELFPAY ==
--- NOTE | 2023-06-22 15:16 | EMG_ITS ---
Chief complaint: History of bilateral carpal tunnel and ulnar neuropathy at the elbow surgeries more than 10 years ago Reason for referral: Evaluate for Carpal Tunnel Syndrome, ulnar neuropathy Referred by: Tracy HAMLIN Procedure done: Bilateral upper extremities NCS/EMG Precautions and/or limitations: None The limb temperature was monitored continuously and remained between 32-36 degrees C during the performance of the NCS. Ulnar motor NCS was performed with moderate elbow flexion between 70-90 degrees, with across-elbow distance of 10 cm. Nerve Conduction Studies Anti Sensory Summary Table ?Stim Site NR Onset (ms) Norm Onset (ms) Peak (ms) Norm Peak (ms) O-P Amp (?V) Norm O-P Amp Site1 Site2 Delta-0 (ms) Dist (cm) Patrick (m/s) Norm Patrick (m/s) Left Median Anti Sensory (2nd Digit) Wrist ? 2.3 3.5 <3.6 17.2 >10 Wrist 2nd Digit 2.3 14.0 61 Right Median Anti Sensory (2nd Digit) Wrist ? 2.2 3.6 <3.6 26.0 >10 Wrist 2nd Digit 2.2 14.0 64 Right Radial Anti Sensory (Thumb) Forearm ? 1.6 2.1 <3.1 12.1 Forearm Thumb 1.6 0.0 Left Ulnar Anti Sensory (5th Digit) Wrist ? 2.3 3.3 <3.7 4.5 >15.0 Wrist 5th Digit 2.3 14.0 61 Right Ulnar Anti Sensory (5th Digit) Wrist NR <3.7 >15.0 Wrist 5th Digit 14.0 Motor Summary Table ?Stim Site NR Onset (ms) Norm Onset (ms) O-P Amp (mV) Norm O-P Amp iAmp (mV) Amp (1st) (%) Site1 Site2 Delta-0 (ms) Dist (cm) Patrick (m/s) Norm Patrick (m/s) Left Median Motor (Abd Poll Brev) Wrist ? 3.7 <3.9 7.4 >4.5 8.7 100.0 Elbow Wrist 4.5 23.5 52 >45 Elbow ? 8.2 7.3 8.6 98.6 Right Median Motor (Abd Poll Brev) Wrist ? 3.5 <3.9 6.5 >4.5 7.4 100.0 Elbow Wrist 5.1 24.0 47 >45 Elbow ? 8.6 5.3 6.1 81.5 Right Ulnar Motor (Abd Dig Minimi) Wrist ? 3.0 <3.0 7.6 >5 8.7 100.0 B Elbow Wrist 3.8 21.0 55 >45 B Elbow ? 6.8 7.0 8.1 92.1 A Elbow B Elbow 1.6 10.0 62 >45 A Elbow ? 8.4 6.3 7.4 82.9 Left Ulnar Motor (FDI) Wrist ? 3.9 <3.0 5.2 >5 6.4 100.0 B Elbow Wrist 3.9 22.0 56 B Elbow ? 8.0 5.7 6.9 109.6 A Elbow B Elbow 4.1 10.0 24 >45 A Elbow ? 9.5 6.1 7.4 117.3 1.5 0.0 >45 Right Ulnar Motor (FDI) Wrist ? 3.9 <3.0 8.0 >5 9.8 100.0 B Elbow Wrist 3.9 21.5 55 B Elbow ? 7.4 8.0 9.7 100.0 A Elbow B Elbow 3.5 10.0 29 >45 A Elbow ? 9.1 5.7 6.8 71.3 1.7 0.0 >45 EMG ?Side Muscle Nerve Root Ins Act Fibs Psw Amp Dur Poly Recrt Int Pat Comment Right 1stDorInt Ulnar C8-T1 Nml Nml Nml Nml Nml 0 Nml Complete Right Biceps Musculocut C5-6 Nml Nml Nml Nml Nml 0 Nml Complete Right Triceps Radial C6-7-8 Nml Nml Nml Nml Nml 0 Nml Complete Right Deltoid Axillary C5-6 Nml Nml Nml Nml Nml 0 Nml Complete Left 1stDorInt Ulnar C8-T1 Nml Nml Nml Nml Nml 0 Nml Complete Left Biceps Musculocut C5-6 Nml Nml Nml Nml Nml 0 Nml Complete Left Triceps Radial C6-7-8 Nml Nml Nml Nml Nml 0 Nml Complete Left Deltoid Axillary C5-6 Nml Nml Nml Nml Nml 0 Nml Complete Left FlexCarpiUln Ulnar C8,T1 Nml Nml Nml Nml Nml 0 Nml Complete Right FlexCarpiUln Ulnar C8,T1 Nml Nml Nml Nml Nml 0 Nml Complete FINDINGS: Right ulnar neuropathy, recording at FDI, showed prolonged distal latency, small amplitude above the elbow and slow conduction velocity across the elbow. Left ulnar neuropathy, recording at FDI, showed prolonged distal latency, normal amplitude and slow conduction velocity across the elbow. Right ulnar sensory nerve showed absent response. Left ulnar sensory nerve showed normal peak latency but small amplitude. All other nerves tested were within normal. Concentric needle EMG was performed in selected muscles of the bilateral upper extremities. Study did not reveal signs of electric abnormalities as shown in the table below. IMPRESSION: 1. This is an abnormal study. 2. There is electrodiagnostic evidence for bilateral ulnar neuropathy at the elbow.. 3. There is no electrodiagnostic evidence for median neuropathy, brachial plexopathy or cervical radiculopathy. Thank you for your kind referral. Maryse Richmond MD, FAIZAN Board Certified, [place] [employer] and [employer] (ABPMR) Board Certified, [place] Board [employer] Electrodiagnostic Medicine (ABEM) CODIN [id number] x 2 MTDD
== END 2023-06-22 15:15 | disposition home or self-care (01) ==
LOC: HO.NEURO 15:14
PROVIDERS: PCP Internal Medicine; Visit Provider Physician Assistant
DX: G56.23 Lesion of ulnar nerve, bilateral upper limbs (principal)
CPT/HCPCS: 95886; 95911

== ENCOUNTER → 2023-06-22 15:16 | Outpatient (BNV) | payer OTHER, SELFPAY | PROVIDERS: PCP Internal Medicine; Visit Provider Physical Medicine & Rehabilitation | DX: G56.23 Lesion of ulnar nerve, bilateral upper limbs (principal) | CPT/HCPCS: 95886; 95911 ==

== ENCOUNTER 2024-12-08 16:05 | Emergency (ER) | payer BC, SELFPAY ==
--- NOTE | ~2024-12-08 | XR_ITS ---
CLINICAL HISTORY: lac to 1st webbed space 3 view left hand Comparison: None provided Findings: No fractures or dislocations. No significant arthritic change. No erosions. No radiopaque foreign body. IMPRESSION: No fracture or foreign body. This document has been electronically signed by: Aminta Perez MD on 12/08/2024 16:54:26
[2024-12-08 16:09] VITALS: BP 106/69; PULSE 61; RESP 18; TEMP 36.4; O2SAT 97; BMI 23.6
--- NOTE | 2024-12-08 16:09 | ED_ITS ---
HPI - Skin/Abscess/Foreign Bdy General Chief complaint: Wound/Laceration Stated complaint: left hand wound Time Seen by Provider: 12/08/24 16:26 Source: patient Mode of arrival: ambulatory Limitations: no limitations History of Present Illness ED Provider: Dr. Nancy Bryan HPI narrative: Patient comes to the emergency room complaining of a laceration to the webspace between the thumb and index finger that occurred earlier today. Patient states that he was working on a project with a saw, he got bumped by another person and he accidentally slipped and the saw lacerated his skin. Patient states that it is superficial, he says that he has no trouble moving his fingers or wrist in any way. Patient earlier today, said that he may be up-to-date with his Tdap. However, patient states that he really does not know and he is agreeable to get 1 if needed. Patient denies any other injuries, patient is not on blood thinners Related Data Previous Rx's ?Medication ?Instructions ?Recorded blood pressure monitor (Blood #1 ea 11/10/22 Pressure Kit) amlodipine 10 mg tablet 10 mg PO DAILY #90 tabs 08/15 07/10 metoprolol succinate 25 mg 25 mg PO DAILY 90 days #90 tabs 09/04/24 tablet,extended release 24 hr atorvastatin 20 mg tablet 20 mg PO DAILY #90 tabs 0502/07 Allergies Allergy/AdvReac Type Severity Reaction Status Date / Time lisinopril (LISINOPRIL) Allergy Intermediate COUGH Verified 12/08/24 16:10 Review of Systems Review of Systems: Constitutional : No Weight loss, No Fever, No Chills, No Night Sweats, No Fatigue, No Malaise ENT/Mouth : No Hearing loss, No Ear Pain, No Nasal Congestion, No Sinus Pain, No Hoarseness, No sore throat, No Rhinorrhea, No Swallowing Difficulty Eyes: No Eye Pain, No Swelling, No Redness, No Foreign Body, No Discharge, No Vision Changes Cardiovascular : No Chest Pain, No SOB, No Dyspnea on Exertion, No Orthopnea, No Edema, No Palpitations Respiratory : No Cough, No Sputum, No Wheezing, No Smoke Exposure, No Dyspnea Gastrointestinal : No Nausea, No Vomiting, No Diarrhea, No Constipation, No abdominal Pain, No Hematochezia, No Melena Genitourinary : no irregular bleeding, No Dysuria, No Urinary Frequency, No Hematuria, No Urinary Incontinence, No Urgency, No Flank Pain, No Urinary Flow Changes, No Hesitancy Musculoskeletal : No joint pain, No Myalgias, No Joint Swelling Skin : Complaining of a laceration to the webspace between the thumb and index finger of the left hand Neuro : No Weakness, No Numbness, No Paresthesias, No Loss of Consciousness, No Dizziness, No Headache Psych : No Anxiety/Panic, No Depression, No SI/HI/AH/VH, No Social Issues, Heme/Lymph: No Bruising, No Bleeding,No Lymphadenopathy Endocrine : No Polyuria, No Polydipsia, No Temperature Intolerance [facility] Past Medical History Medical History Nicotine dependence, cigarettes, uncomplicated Tick bite Essential hypertension Sessile colonic polyp (~2019) Hx of gout Elevated cholesterol Surgical History (Updated 12/14/22 @ 10:52 by Ana Lilia Levin PA-C) History of colonoscopy History of repair of right rotator cuff History of vasectomy History of tonsillectomy History of elbow surgery History of carpal tunnel surgery Family History Family History (Updated 05/10/23 @ 08:51 by Vik Scruggs MD) Unknown No family history of colorectal cancer Brother Brain tumor Mother Diabetes Maternal Grandfather CVA (cerebral vascular accident) Heart attack Maternal Aunt Cervical cancer Social History Social History (Updated 05/10/23 @ 08:54 by Vik Srcuggs MD) Household Members: Spouse and Children Housing: House Alcohol intake: current Comment: QD 1 beer 4-5 shots Patient Tobacco Use Status: Current everyday Tobacco user Tobacco use type: Cigarette Cigarette Packs Per Day: 1 Years Smoked: (onset 17yo, 1ppd x 35yrs - 30+pyh) e-Cigarette/Vaping Use: Never Used Second Hand Smoke Exposure: No Advance Directives: No Advance Directives Information Provided: No service: No Current occupational status: unemployed Cognitive needs: No Hearing needs: No Vision needs: No Physical Exam Exam: Exam: Appearance: Alert. Oriented X3. No acute distress. Well-appearing Eyes: Pupils equal, round and reactive to light. ENT: Pharynx normal. Neck: Normal inspection. Neck supple. No lymph nodes noted. No crepitus CVS: Normal heart rate and rhythm. Pulses normal. Normal S1 and S2 Respiratory: No respiratory distress. Breath sounds normal. No Wheezing. No rales Abdomen: Soft and nontender. No rigidity. No distention. Skin: Skin warm and dry. Normal skin color. Normal skin turgor. See extremities below Extremities: No lower extremity edema. No Lacerations. No Rash, in the webspace more dorsal aspect of the hand between the 1st and 2nd digits, there is a 1.5 cm laceration. Examine done under a bloodless field, no tendons visualized. Patient is able to flex and extend all fingers, oppose the thumb, no wrist drop or weakness. Neuro: Oriented X 3. No motor deficit. No sensory deficit. Moving all extremities. No slurred speech. CN 2 through 12 grossly intact Psych: calm, cooperative, normal affect Vital Signs: Vital Signs: Last Vital Signs Temp 97.6 F 12/08/24 16:09 Pulse 61 12/08/24 16:09 Resp 18 12/08/24 16:09 BP 106/69 12/08/24 16:09 Pulse Ox 97 12/08/24 16:09 O2 Del Method Room Air 12/08/24 16:09 BMI result Body Mass Index 23.6 Course Course Course Narrative: 12/08/24 1609 YAKELIN March This is a Rapid Medical Examination (RME) performed by Patricia Arreaga PA-C in triage. Full HPI, ROS, assessment and treatment plan per primary provider in the Main ED. Hx: 54 yo M hx of etoh use disorder. HTN here for eval of laceration to L hand sustained a few hours [employer]. reports using a saw when his friend bumped into him, casing the saw to slip and lacerated the webbed space between his 1st/2nd digits. believes is tdap is UTD. he is not on an anticoagulant. PE/vitals: 3.5 cm laceration noted to webbed space between L 1st and 2nd digits w/ coagulated blood. no active bleeding. ROM to L 1st and 2nd digits intact. 2+cap refill. mild scleral icertus. Plan: xr, lac repair +/- tdap Medications Administered Discontinued Medications Generic Name Dose Route Start Last Admin Trade Name Freq PRN Reason Stop Dose Admin Diphtheria/Tetanus/Acell Pertussis 0.5 ml 12/08/24 16:29 12/08/24 16:42 Diphth,Pertus(Acell),Tet Adult 0.5 Ml Syringe IM 12/08/24 16:30 0.5 ml .ONCE ONE Administration Lidocaine HCl 10 ml 12/08/24 16:29 12/08/24 16:42 Lidocaine Hcl 2 % Mpf 5 Ml Vial INFILTRATI 12/08/24 16:30 10 ml ONCE ONE Administration Medical Decision Making Medical Decision Making MDM Narrative: Patient did 5 stitches, the injury was infiltrated with lidocaine 2% without epi. Patient tolerated well the procedure. Procedures Laceration Laceration 1: Site: hand Side (If applicable): left Size (cm): 1.5 Description: linear Depth: simple, single layer Local Anesthetic: lidocaine 2% Pre-repair: wound explored and irrigated extensively Skin layer closed with: nylon Size (cm): 5-0 Number of sutures: 5 Technique: simple, interrupted Discharge Plan Discharge Clinical Impression: Laceration Patient Disposition: Home, Self-Care Instructions: Laceration (ED) Additional Instructions: Your stitches need to be removed in 7-10 days. Your stitches may be removed either by your primary care physician, urgent care or here in the emergency room. If you see any signs of infection such as redness, pus drainage, if you develop fever chills, please return to the emergency room. Please follow-up with your primary care physician tomorrow. If you have any worsening or new symptoms, please return to the emergency room or call 911 Prescriptions: No Action metoprolol succinate 25 mg tablet extended release 24 hr 25 mg PO DAILY 90 Days Qty: 90 0RF amlodipine 10 mg tablet 10 mg PO DAILY Qty: 90 0RF atorvastatin 20 mg tablet 20 mg PO DAILY Qty: 90 0RF (DME) blood pressure monitor [Blood Pressure Kit] Kit See Rx Instructions .ROUTE .MEDSUPPLY Qty: 1 0RF Rx Instructions: As directed Print Language: Kinyarwanda
[2024-12-08] MEDS: Lidocaine HCl 2 % MPF 5 ML VIAL 10 ML INFILTRATI (16:42)
[2024-12-08] MEDS: Diphth,Pertus(ACell),Tet Adult 0.5 ML SYRINGE IM (16:42)
[2024-12-08 16:58] VITALS: BP 106/69; PULSE 61; RESP 18; TEMP 36.4; O2SAT 97
== END 2024-12-08 16:59 | disposition home or self-care (01) ==
PROVIDERS: Emergency Provider Emergency Medicine; PCP Internal Medicine
DX: S61.412A Laceration without foreign body of left hand, initial encounter (principal); W31.2XXA Contact with powered woodworking and forming machines, initial encounter; Y93.89 Activity, other specified; Y92.9 Unspecified place or not applicable; Y99.9 Unspecified external cause status; Z23 Encounter for immunization
CPT/HCPCS: 12001; 73130; 90471; 90715; 99283; 99284; J2003

== ENCOUNTER → 2024-12-08 16:10 | Outpatient (BNV) | payer BC, SELFPAY | PROVIDERS: Emergency Provider Emergency Medicine; PCP Internal Medicine; Visit Provider Radiology Diagnostic Radiology | DX: S61.412A Laceration without foreign body of left hand, initial encounter (principal) | CPT/HCPCS: 73130 ==

== ENCOUNTER 2024-12-11 15:26 | Outpatient (AMB) | payer BC, SELFPAY ==
[2024-12-11 15:28] VITALS: BP 104/62; PULSE 63; RESP 18; TEMP 36.2; O2SAT 98; BMI 23.5
--- NOTE | 2024-12-11 15:28 | A.OFFPC_ITS ---
Vital Signs 12/11/24 15:28 Height 5 ft 10 in Weight 163 lb 8 oz BMI 23.5 BP 104/62 Blood Pressure Location Lt brachial Position Sitting Respiration 18 Pulse 63 Pulse Source Pulse Oximeter Temp 97.1 F Temp Source Temporal Artery Scan Pulse Oximetry (%) 98 Oxygen Delivery Method Room Air Intake Visit Reasons: blood pressure meds Allergies lisinopril (LISINOPRIL) Allergy (Intermediate, Verified 12/11/24 15:30) COUGH Tobacco use date assessed: 12/11/24 Dental Screening Dental Screen Date: 12/11/24 Did you have a dental visit in the last 12 months?: No Did you have a dental problem in the last 6 months where you did not have access to dental care?: No Was dental information given to patient?: No PFSH Medical History Nicotine dependence, cigarettes, uncomplicated Tick bite Essential hypertension Sessile colonic polyp (~2020) Hx of gout Elevated cholesterol Surgical History History of colonoscopy History of repair of right rotator cuff History of vasectomy History of tonsillectomy History of elbow surgery History of carpal tunnel surgery Family History Unknown No family history of colorectal cancer Brother Brain tumor Mother Diabetes Maternal Grandfather CVA (cerebral vascular accident) Heart attack Maternal Aunt Cervical cancer Social History Household Members: Spouse and Children Housing: House Alcohol intake: current Comment: QD 1 beer 4-5 shots Patient Tobacco Use Status: Current everyday Tobacco user Tobacco use type: Cigarette Cigarette Packs Per Day: 1 Cigarettes Per Day: 20 Years Smoked: (onset 17yo, 1ppd x 35yrs - 30+pyh) e-Cigarette/Vaping Use: Never Used Second Hand Smoke Exposure: No service: No Current occupational status: unemployed Cognitive needs: No Hearing needs: No Vision needs: Yes (reading) Questionnaire PHQ-9 Over the last 2 weeks, how often have you been bothered by any of the following problems? 1. Little interest or pleasure in doing things: not at all 2. Feeling down, depressed, or hopeless: not at all 3. Trouble falling or staying asleep, or sleeping too much: not at all 4. Feeling tired or having little energy: not at all 5. Poor appetite or overeating: not at all 6. Feeling bad about yourself - or that you are a failure or have let yourself or your family down: not at all 7. Trouble concentrating on things, such as reading the newspaper or watching television: not at all 8. Moving or speaking so slowly that other people could have noticed. Or the opposite - being so fidgety or restless that you have been moving around a lot more than usual: not at all 9. Thoughts that you would be better off or of hurting yourself in some way: not at all Total score: 0 Depression Screening Interpretation: Negative Depression Screening Done: Yes 94995 - PHQ-9 Billing: Yes Source: Developed by Drs. Gilberto Zeng, Josephine Shetty, Braxton Gonsalez and colleagues, with an educational raleigh from [employer]. Thrive Questionnaire Date Thrive assessed: 11/10/22 I am a: Patient What is your living situation today?: I have a steady place to live Within the past 12 months, did the food you bought not last and you didn't have the money to get more?: Never true Within the past 12 months, did you worry whether your food would run out before you got money to buy more?: Never true Do you have trouble paying for medicines?: No Do you have trouble getting transportation to medical appointments?: No Do you have trouble paying your heating and electricity bill?: No Do you have trouble taking care of your child, family member or friend?: No Do you have trouble with day-to-day activities such as bathing, preparing meals, shopping, managing finances, etc.?: No Are you currently unemployed and looking for a job?: No Are you interested in more education?: No THRIVE Score: 0 AUDIT C Alcohol Use Questionnaire (AUDIT-C) 1. How often do you have a drink containing alcohol?: 4 or more times a week 2. How many drinks containing alcohol do you have on a typical day when you are drinking?: 5 or 6 3. How often do you have six or more drinks on one occasion?: Never Total Score: 6 LISSA-7 AMB Questionnaire LISSA-7 Date LISSA - 7 assessed: 11/10/22 Feeling nervous, anxious, or on edge: 0 = Not at all Not being able to stop or control worryin = Not at all Worrying too much about different things: 0 = Not at all Trouble relaxin = Not at all Being so restless that it is hard to sit still: 0 = Not at all Becoming easily annoyed or irritable: 0 = Not at all Feeling afraid as if something awful might happen: 0 = Not at all Total LISSA-7 score (0-4 normal; 5-9 mild; 10-14 moderate; 15-21 severe): 0 Source: Developed by Drs. Gilberto Zeng, Josephine Shetty, Bratxon Gonsalez and colleagues, with an educational raleigh from [employer]. LISSA-7 Assessment Billing LISSA-7 Assessment Tool: LISSA-7 Assessment 91380 Physical exam (Primary Care) Vital Signs: Last Vital Signs Temp 97.1 F 12/11/24 15:28 Pulse 63 12/11/24 15:28 Resp 18 12/11/24 15:28 BP 104/62 12/11/24 15:28 Pulse Ox 98 12/11/24 15:28 Oxygen Delivery Method Room Air 12/11/24 15:28 BMI result Body Mass Index 23.5 Tobacco/Smoking Status: Tobacco use Status Tobacco use date assessed 12/11/24 12/11/24 15:32 Patient Tobacco Use Status Current everyday Tobacco 12/11/24 15:32 Tobacco use type Cigarette 12/11/24 15:32 e-Cigarette/Vaping Use Never Used 12/11/24 15:32 PHQ-9: PHQ-9 Score PHQ-9: Total score 0 12/11/24 16:06 Depression Screening Interpretation: Negative Thrive Assessment: Date of Thrive Assessment Date Thrive assessed 11/10/22 12/11/24 15:32 Const General: alert; No acute distress Eyes Conjunctivae: conjunctivae normal Resp Auscultation: clear to auscultation bilaterally Cardio Rate: regular rate Rhythm: regular rhythm GI Inspection: Yes normal to inspection Coding Level of Care Code Est Pt Level 4 (61387) Complex EM visit Add On G2211 Diagnoses Essential hypertension I10 Elevated cholesterol E78.00 Nicotine dependence, cigarettes, uncomplicated F17.210 Laceration of hand S61.419A Colon cancer screening Z12.11 Additional Codes LISSA-7 Assessment Billing - LISSA-7 Assessment Tool: LISSA-7 Assessment 97007 ([id number]) PHQ-9 - 32958 - PHQ-9 Billing: Yes ([id number]) Assessment & Plan Assessment & Plan (1) Essential hypertension: Code(s): I10 - Essential (primary) hypertension Category: Medical Plan: Continue with blood pressure medication. Decrease salt intake and exercise patient is on amlodipine and metoprolol (2) Elevated cholesterol: Comment: May 2022 Code(s): E78.00 - Pure hypercholesterolemia, unspecified Category: Medical Plan: Avoid fried foods, chicken skin, eggs, butter margarine, pastries and meat. Be it pork or beef they have a lot of cholesterol on atorvastatin and needs blood work (3) Nicotine dependence, cigarettes, uncomplicated: Comment: (current smoker - onset 17yo, 1ppd x 35yrs - 30pyh) CT chest December 2022 Code(s): F17.210 - Nicotine dependence, cigarettes, uncomplicated Category: Medical Plan: Patient is strongly advised to stop smoking! (4) Laceration of hand: Code(s): S61.419A - Laceration without foreign body of unspecified hand, initial encounter Category: Medical Plan: 5 sutures in and not ready (5) Colon cancer screening: Code(s): Z12.11 - Encounter for screening for malignant neoplasm of colon Category: Medical Plan History of Present Illness The patient is a 54-year-old male presenting for follow-up care and management of chronic conditions, including hypertension, hypercholesterolemia, and alcohol use disorder. The patient has a history of smoking, hypercholesterolemia, and hypertension, and was last seen in April 2023. His last colonoscopy was in March 2020, and he is currently due for another screening. In November 2022, the patient visited the emergency room for a laceration on his left hand, which required five sutures. He has been advised to keep the wound clean and covered to prevent infection. In June 2023, a nerve conduction test revealed bilateral ulnar neuropathy, with no evidence of carpal tunnel syndrome. The patient was informed of a lung nodule found during a 2022 CAT scan, which is small and non-calcified. Further evaluation with MRI or a nuclear bone scan was suggested to monitor the nodule. The patient is currently on amlodipine and metoprolol for blood pressure management and atorvastatin for cholesterol control. He has been noncompliant with medication adherence and has been strongly advised to stop smoking. Health Maintenance - Colonoscopy due for screening - Blood work needed for cholesterol and liver function monitoring - Smoking cessation strongly advised - Pneumonia vaccination completed - Shingles vaccination discussed but not required Social History - Smoking: Smokes approximately one pack per day - Alcohol use disorder: History of alcohol use disorder - Physical activity: Engages in hiking and fishing Review of Systems - Neurological: Reports bilateral ulnar neuropathy, denies carpal tunnel syndrome - Respiratory: Denies symptoms related to lung nodule Physical Exam - Cardiovascular: Heart auscultation performed, no abnormalities noted - Respiratory: Lung auscultation performed, no abnormalities noted Results - Nerve conduction test: Bilateral ulnar neuropathy, no carpal tunnel syndrome (June 2023) - CAT scan (2022): Lung nodule, non-calcified, 9 mm spot on T9 vertebra Plan The patient will continue on amlodipine and metoprolol for hypertension management and atorvastatin for hypercholesterolemia. Blood work is required to monitor cholesterol levels and liver function due to atorvastatin use. The patient is advised to undergo a follow-up colonoscopy as he is due for screening. Smoking cessation is strongly recommended to reduce health risks, including those associated with the lung nodule. Further evaluation of the lung nodule with MRI or a nuclear bone scan is suggested to monitor its status. The patient is encouraged to maintain wound care for the laceration on his left hand to prevent infection. Patient was informed and verbally consented to the use of an ambient scribe for clinic note documentation during this visit. Discussion Notes During the visit, I discussed the importance of managing hypertension and hypercholesterolemia with the patient, emphasizing adherence to prescribed medications, including amlodipine, metoprolol, and atorvastatin. We reviewed the need for regular blood work to monitor cholesterol levels and liver function, given the patient's medication regimen. I advised the patient on the necessity of a follow-up colonoscopy, as he is due for screening, and strongly recommended smoking cessation to mitigate health risks, particularly concerning the lung nodule. We discussed the findings of the lung nodule from the 2022 CAT scan and considered further evaluation with MRI or a nuclear bone scan to monitor its status. The patient was instructed on proper wound care for the laceration on his left hand to prevent infection. Patient Instructions - Continue taking amlodipine and metoprolol for blood pressure management. - Take atorvastatin as prescribed and complete blood work for cholesterol and liver function monitoring. - Schedule and complete a follow-up colonoscopy. - Strongly consider quitting smoking to improve overall health. - Maintain wound care for the left hand laceration to prevent infection. - Follow up with further evaluation of the lung nodule as discussed. Orders: Orders Thyroid Stimulating Hormone Today E78.00 - Pure hypercholesterolemia, unspecified Lipid Panel Today E78.00 - Pure hypercholesterolemia, unspecified Prostate Specific Antigen Scr Today E78.00 - Pure hypercholesterolemia, unspecified Comprehensive Met. Panel Today E78.00 - Pure hypercholesterolemia, unspecified Complete Blood Count Auto Diff Today E78.00 - Pure hypercholesterolemia, unspecified Free T4 (Free Thyroxine) Today E78.00 - Pure hypercholesterolemia, unspecified Vitamin B12 and Folate Today E78.00 - Pure hypercholesterolemia, unspecified Referrals Gastroenterology Referral Z12.11 - Encounter for screening for malignant neoplasm of colon
== END 2024-12-11 16:20 | disposition home or self-care (01) ==
LOC: HO.HMCH 15:27
PROVIDERS: PCP Internal Medicine; Visit Provider Internal Medicine
DX: I10 Essential (primary) hypertension (principal); E78.00 Pure hypercholesterolemia, unspecified; F17.210 Nicotine dependence, cigarettes, uncomplicated; S61.419A Laceration without foreign body of unspecified hand, initial encounter; Z12.11 Encounter for screening for malignant neoplasm of colon

== ENCOUNTER → 2024-12-11 15:26 | Outpatient (BNVA) | payer BC, SELFPAY | PROVIDERS: PCP Internal Medicine; Visit Provider Internal Medicine | DX: I10 Essential (primary) hypertension (principal); E78.00 Pure hypercholesterolemia, unspecified; S61.412D Laceration without foreign body of left hand, subsequent encounter; X58.XXXD Exposure to other specified factors, subsequent encounter; F17.210 Nicotine dependence, cigarettes, uncomplicated; Z79.899 Other long term (current) drug therapy; Z13.31 Encounter for screening for depression | CPT/HCPCS: 96127 ==

== ENCOUNTER 2025-02-21 09:22 | Outpatient (AMB) | payer BC, SELFPAY ==
[2025-02-21 09:25] VITALS: BP 142/72; PULSE 69; TEMP 36.3; O2SAT 98; BMI 24.0
--- NOTE | 2025-02-21 09:25 | A.OFFPC_ITS ---
Vital Signs 02/21/25 09:25 Height 5 ft 10 in Weight 167 lb BMI 24.0 BP 142/72 H Blood Pressure Location Lt brachial Position Sitting Pulse 69 Pulse Source Pulse Oximeter Temp 97.3 F Temp Source Temporal Artery Scan Pulse Oximetry (%) 98 Oxygen Delivery Method Room Air Intake Visit Reasons: Pain on toe Allergies lisinopril (LISINOPRIL) Allergy (Intermediate, Verified 02/21/25 09:28) COUGH Tobacco use date assessed: 02/21/25 Dental Screening Dental Screen Date: 02/21/25 Did you have a dental visit in the last 12 months?: No Did you have a dental problem in the last 6 months where you did not have access to dental care?: No Was dental information given to patient?: No HPI HPI Comments History of Present Illness Details The patient is a 54-year-old male presenting with foot pain and tingling following a toe injury. Approximately four months ago, the patient injured his toe by hitting it against a bedroom door in the dark. The injury involved the left big toe, which was not visibly deformed, and the patient chose not to seek hospital care at the time. Since the incident, the patient reports intermittent pain that has recently intensified, accompanied by tingling sensations. He denies any known history of diabetes and has not experienced similar issues with his feet previously. The patient also experiences cramping in both feet at night, which he is unsure is related to the current issue. He is not currently taking any medication for the pain, aside from his blood pressure medication. [facility] Medical History Nicotine dependence, cigarettes, uncomplicated Tick bite Essential hypertension Sessile colonic polyp (~2019) Hx of gout Elevated cholesterol Surgical History History of colonoscopy History of repair of right rotator cuff History of vasectomy History of tonsillectomy History of elbow surgery History of carpal tunnel surgery Family History Unknown No family history of colorectal cancer Brother Brain tumor Mother Diabetes Maternal Grandfather CVA (cerebral vascular accident) Heart attack Maternal Aunt Cervical cancer Social History Household Members: Spouse and Children Housing: House Alcohol intake: current Comment: QD 1 beer 4-5 shots Patient Tobacco Use Status: Current everyday Tobacco user Tobacco use type: Cigarette Cigarette Packs Per Day: 1 Cigarettes Per Day: 20 Years Smoked: (onset 17yo, 1ppd x 35yrs - 30+pyh) e-Cigarette/Vaping Use: Never Used Second Hand Smoke Exposure: No service: No Current occupational status: unemployed Cognitive needs: No Hearing needs: No Vision needs: Yes (reading) Questionnaire PHQ-9 Over the last 2 weeks, how often have you been bothered by any of the following problems? 1. Little interest or pleasure in doing things: not at all 2. Feeling down, depressed, or hopeless: not at all 3. Trouble falling or staying asleep, or sleeping too much: not at all 4. Feeling tired or having little energy: not at all 5. Poor appetite or overeating: not at all 6. Feeling bad about yourself - or that you are a failure or have let yourself or your family down: not at all 7. Trouble concentrating on things, such as reading the newspaper or watching television: not at all 8. Moving or speaking so slowly that other people could have noticed. Or the opposite - being so fidgety or restless that you have been moving around a lot more than usual: not at all 9. Thoughts that you would be better off or of hurting yourself in some way: not at all Total score: 0 Depression Screening Interpretation: Negative Depression Screening Done: Yes 53626 - PHQ-9 Billing: Yes Source: Developed by Drs. Gilberto Zeng, Josephine Shetty, Braxton Gonsalez and colleagues, with an educational raleigh from [employer]. Thrive Questionnaire Date Thrive assessed: 02/21/25 I am a: Patient What is your living situation today?: I have a steady place to live Within the past 12 months, did the food you bought not last and you didn't have the money to get more?: Never true Within the past 12 months, did you worry whether your food would run out before you got money to buy more?: Sometimes True Do you have trouble paying for medicines?: No Do you have trouble getting transportation to medical appointments?: No Do you have trouble paying your heating and electricity bill?: No Do you have trouble taking care of your child, family member or friend?: No Do you have trouble with day-to-day activities such as bathing, preparing meals, shopping, managing finances, etc.?: No Are you currently unemployed and looking for a job?: No Are you interested in more education?: No Please select the resources that you would like help with: None Currently or been in a relationship where the following occur: No concerns reported THRIVE Score: 1 AUDIT C Alcohol Use Questionnaire (AUDIT-C) 1. How often do you have a drink containing alcohol?: 4 or more times a week 2. How many drinks containing alcohol do you have on a typical day when you are drinking?: 3 or 4 3. How often do you have six or more drinks on one occasion?: Less than monthly Total Score: 6 LISSA-7 AMB Questionnaire LISSA-7 Date LISSA - 7 assessed: 02/21/25 Feeling nervous, anxious, or on edge: 0 = Not at all Not being able to stop or control worryin = Not at all Worrying too much about different things: 0 = Not at all Trouble relaxin = Not at all Being so restless that it is hard to sit still: 0 = Not at all Becoming easily annoyed or irritable: 0 = Not at all Feeling afraid as if something awful might happen: 0 = Not at all Total LISSA-7 score (0-4 normal; 5-9 mild; 10-14 moderate; 15-21 severe): 0 Source: Developed by Drs. Gilberto Zeng, Josephine Shetty, Braxton Gonsalez and colleagues, with an educational raleigh from [employer]. LISSA-7 Assessment Billing LISSA-7 Assessment Tool: LISSA-7 Assessment 91136 Review of Systems Const Details: Not done Physical exam (Primary Care) Vital Signs: Last Vital Signs Temp 97.3 F 02/21/25 09:25 Pulse 69 02/21/25 09:25 BP 142/72 H 02/21/25 09:25 Pulse Ox 98 02/21/25 09:25 Oxygen Delivery Method Room Air 02/21/25 09:25 BMI result Body Mass Index 24.0 Tobacco/Smoking Status: Tobacco use Status Tobacco use date assessed 02/21/25 02/21/25 09:29 Patient Tobacco Use Status Current everyday Tobacco 02/21/25 09:29 Tobacco use type Cigarette 02/21/25 09:29 e-Cigarette/Vaping Use Never Used 02/21/25 09:29 PHQ-9: PHQ-9 Score PHQ-9: Total score 0 02/21/25 09:29 Depression Screening Interpretation: Negative Thrive Assessment: Date of Thrive Assessment Date Thrive assessed 02/21/25 02/21/25 09:29 Currently or been in a relationship where the following occur: No concerns reported Const Other: Pertinent findings are in BOLD GENERAL APPEARANCE NAD, activity normal for age, well developed/ well nourished, no cyanosis, pallor, or diaphoresis. EYES lids/conjunctiva normal. EARS/NOSE/THROAT Mucous membranes moist, nares normal, lips/teeth normal uvula midline without oral pharyngeal erythema, exudate or swelling TMs normal bilaterally. No lymphangitis/lymphedema. HEAD/NECK normocephalic atraumatic, no facial trauma, neck is supple. RESPIRATORY respiratory effort normal, speaks in full sentences, no tripod position, no accessory muscle use. Lungs clear to auscultation without rhonchi, wheezes, rales CARDIAC Regular rate and rhythm, no edema. ABDOMINAL Soft, ND/NT. No evidence of fluid wave. No pulsatile masses on exam, rebound tenderness, Skaggs sign or pain over Mcburney's point. MUSCLES/EXTREMITIES No abnormal range of motion, no swelling. SKIN Warm, pink and dry. No rashes, dermatoses, petechiae or lesions. NEUROLOGICAL Speech is clear and appropriate. Normal level of consciousness. Gait and coordination are normal. 5/5 strength in all extremities. PSYCH Normal mood and affect. Judgement/competence is appropriate Second toe of left foot with mild redness and tenderness to palation. Coding Level of Care Code Est Pt Level 3 (50979) Diagnoses Toe pain M79.676 Additional Codes LISSA-7 Assessment Billing - LISSA-7 Assessment Tool: LISSA-7 Assessment 94961 ([id number]) PHQ-9 - 93161 - PHQ-9 Billing: Yes ([id number]) Time Spent (min) 20 Assessment & Plan Assessment & Plan (1) Toe pain: Code(s): M79.676 - Pain in unspecified toe(s) Category: Medical Plan: - An x-ray of the foot is planned to assess for any fractures. - If a fracture is detected, referral to an orthopedic surgeon will be considered. - Pain management with Tylenol is recommended. - Patient advised to rest the foot, apply ice, and avoid excessive walking. Plan I discussed with the patient the plan to obtain an x-ray to evaluate for any fractures in the foot. If a fracture is found, I will refer him to an orthopedic surgeon for further management. For pain management, I recommended the use of Tylenol and advised him to rest, apply ice, and avoid excessive walking.
== END 2025-02-21 09:49 | disposition home or self-care (01) ==
LOC: HO.HMCH 09:23
PROVIDERS: PCP Internal Medicine; Visit Provider Internal Medicine
DX: M79.676 Pain in unspecified toe(s) (principal)

== ENCOUNTER → 2025-02-21 09:22 | Outpatient (BNVA) | payer BC, SELFPAY | PROVIDERS: PCP Internal Medicine; Visit Provider Internal Medicine | DX: M79.672 Pain in left foot (principal); Z13.31 Encounter for screening for depression; Z13.39 Encounter for screening examination for other mental health and behavioral disorders | CPT/HCPCS: 96127 ==

== ENCOUNTER 2025-02-22 06:04 | Outpatient (REF) | payer BC, SELFPAY ==
--- NOTE | ~2025-02-22 | XR_ITS ---
EXAMINATION: XR FOOT 3 OR MORE VIEWS LEFT HISTORY: M79.676 - Pain in unspecified toe(s) COMPARISON: There are no prior studies available for comparison. FINDINGS: Three views of the left foot are submitted. Osseous mineralization is normal. There is no fracture or dislocation. The joint spaces are preserved. The soft tissues are unremarkable. XR/XR foot LT min 3V IMPRESSION: Unremarkable examination of the left foot. Electronically signed by: Gilberto Warren MD 02/22/2025 07:04 AM EDT
[2025-02-22 06:18] LABS: MANUAL DIFF FLAG NO
[2025-02-22 07:16] LABS: Hematocrit 49.5 % (42.0-52.0); Hemoglobin 16.3 g/dl (14.0-18.0); Imm Gran Abs Auto 0.03 X10*3/uL (0.00-0.03); Imm Gran Pct Auto 0.3 % (0.0-0.4); Lymphocytes Absolute Auto 1.9 X10*3/uL (1.2-4.9); Mean Corpuscular HGB Conc 32.9 g/dl (31.0-36.0); Mean Corpuscular Hemoglobin 32.0 pg (27.0-33.0); Mean Corpuscular Volume 97.1 fL (80.0-98.0); NRBC Abs Auto 0.000 X10*3/uL (0.0-0.012); NRBC Pct Auto 0.0 /100WBC (0.0-0.2); Platelet Count 284 X10*3/uL (160-400); Red Blood Count 5.10 X10*6/uL (4.60-5.80); White Blood Count 9.6 X10*3/uL (4.8-10.8)
[2025-02-22 07:50] LABS: Alanine Aminotransferase 30 U/L (0-40); Albumin Level 4.7 g/dL (3.5-5.0); Alkaline Phosphatase 102 U/L (39-117); Anion Gap 13 (12-20); Aspartate Amino Transferase 48 U/L (5-37); Blood Urea Nitrogen 15 mg/dL (9-16); Calcium 9.8 mg/dL (8.4-10.2); Carbon Dioxide 28 mmol/L (22-29); Chloride 105 mmol/L (96-108); Cholesterol 216 mg/dL (<200); Estimated Glomerular Filt Rate > 60; HDL Cholesterol 76 mg/dL (>40); Potassium 3.9 mmol/L (3.3-5.1); Sodium 142 mmol/L (135-145); Total Protein 8.0 g/dL (6.5-8.0); Triglycerides 120 mg/dL (<150)
[2025-02-22 08:08] LABS: Free T4 (Free Thyroxine) 0.85 ng/dL (0.71-1.85); Thyroid Stimulating Hormone 1.08 uIU/mL (0.32-4.0)
[2025-02-22 08:13] LABS: Folate 6.0 ng/mL (> or = 4.0); Vitamin B12 382 pg/mL (200-900)
== END 2025-02-22 06:05 | disposition home or self-care (01) ==
LOC: HO.XRAY 06:04
PROVIDERS: Absent Provider Internal Medicine; PCP Internal Medicine; Visit Provider Internal Medicine
DX: M25.572 Pain in left ankle and joints of left foot (principal); Z12.5 Encounter for screening for malignant neoplasm of prostate; E78.00 Pure hypercholesterolemia, unspecified
CPT/HCPCS: 36415; 73630; 80053; 80061; 82607; 82746; 84153; 84439; 84443; 85025

== ENCOUNTER → 2025-02-22 06:17 | Outpatient (BNV) | payer BC, SELFPAY | PROVIDERS: Absent Provider Internal Medicine; PCP Internal Medicine; Visit Provider Radiology Diagnostic Radiology | DX: M79.675 Pain in left toe(s) (principal) | CPT/HCPCS: 73630 ==